=== PATIENT | female | born 1955 ===

== ENCOUNTER 2019-10-15 14:25 | Emergency (ER) | payer MEDICARE, MEDICAID ==
[2019-10-15] MEDS ORDERED: ASPIRIN 81 MG CHEWABLE TABLET PO ONE (14:27)
[2019-10-15 14:40] LABS: ABSOLUTE NEUTROPHIL COUNT 3.15; BASO % 0.9 % (0-6); EOS % 3.5 % (0-6); GRAN % 54.5 % (47-80); HEMATOCRIT 40.8 % (35.0-47.0); HEMOGLOBIN 13.1 gm/dl (11.6-16.0); LYMPH % 31.8 % (16-45); MEAN CELL VOLUME 91.3 fl (81-97); MEAN CORPUSCULAR HEMOGLOBIN 29.3 pg (27-33); MEAN CORPUSCULAR HGB CONC 32.1 g/dl (32-36); MONO % 9.3 % (0-9); PLATELET COUNT 282 K/uL (130-400); RED BLOOD COUNT 4.47 M/uL (3.80-5.40); RED CELL DISTRIBUTION WIDTH 12.9 % (11.5-14.5); WHITE BLOOD COUNT W/O DIFF 5.8 K/uL (4.2-12.2)
--- NOTE | 2019-10-15 14:44 | Emergency Department Record ---
History of Present Illness - General Chief Complaint: Chest Pain Stated Complaint: CHEST PAIN Time Seen by Provider: 10/15/19 14:27 Source: Patient, RN notes reviewed Mode of Arrival: Ambulatory - History of Present Illness Initial Comments: patient has right sided chest pain and started one hour before arrival and upon arrival to ED the chest pain went away. No dyspnea no cough no abdominal pain, Patient has not been taking any of her meds for 3 weeks and her primary Dr is Dr Carolyn Vizcaino. Patient said her lips swelled and she thought it was prozaic and stopped all her meds PMH copd, asthma - Related Data Allergies Allergy/AdvReac Type Severity Reaction Status Date / Time lisinopril Allergy Severe Swelling Verified 10/15/19 14:48 Review of Systems Reviewed: No additional complaints except as noted below Constitutional: Reports: As per HPI. Denies: Chills, Fever, Malaise, Night sweats, Weakness, Weight change Eyes: Reports: As per HPI. Denies: Eye discharge, Eye pain, Photophobia, Vision change ENT: Reports: As per HPI. Denies: Congestion, Dental pain, Ear pain, Epistaxis, Hearing loss, Throat pain Respiratory: Reports: As per HPI. Denies: Cough, Dyspnea, Hemoptysis, Stridor, Wheezes Cardiovascular: Reports: As per HPI, Chest pain. Denies: Arrhythmia, Dyspnea on exertion, Edema, Murmurs, Orthopnea, Palpitations, Paroxysmal nocturnal dyspnea, Rheumatic Fever, Syncope Endocrine: Reports: As per HPI. Denies: Fatigue, Heat or cold intolerance, Polydipsia, Polyuria Gastrointestinal: Reports: As per HPI. Denies: Abdominal pain, Constipation, Diarrhea, Hematemesis, Hematochezia, Melena, Nausea, Vomiting Genitourinary: Reports: As per HPI. Denies: Abnormal menses, Discharge, Dyspareunia, Dysuria, Frequency, Hematuria, Incontinence, Retention, Urgency Musculoskeletal: Reports: As per HPI. Denies: Arthralgia, Back pain, Gout, Joint swelling, Myalgia, Neck pain Skin: Reports: As per HPI. Denies: Bruising, Change in color, Change in hair/nails, Lesions, Pruritus, Rash Neurological: Reports: As per HPI. Denies: Abnormal gait, Confusion, Headache, Numbness, Paresthesias, Seizure, Tingling, Tremors, Vertigo, Weakness Psychiatric: Reports: As per HPI. Denies: Anxiety, Auditory hallucinations, Depression, Homicidal thoughts, Suicidal thoughts, Visual hallucinations Hematological/Lymphatic: Reports: As per HPI. Denies: Anemia, Blood Clots, Easy bleeding, Easy bruising, Swollen glands Physical Exam - General General Appearance: Alert, Oriented x3, Cooperative, No acute distress - Head Head exam: Normal inspection - Eye Eye exam: Normal appearance, PERRL Pupils: Normal accommodation - ENT ENT exam: Normal exam, Mucous membranes moist, Normal external ear exam, Normal orophraynx, TM's normal bilaterally Ear exam: Normal external inspection. negative: External canal tenderness Nasal Exam: Normal inspection. negative: Discharge, Sinus tenderness Mouth exam: Normal external inspection, Tongue normal Teeth exam: Normal inspection. negative: Dental caries Throat exam: Normal inspection. negative: Tonsillar erythema, Tonsillar exudate - Neck Neck exam: Normal inspection, Full ROM. negative: Tenderness - Respiratory Respiratory exam: Normal lung sounds bilaterally. negative: Respiratory distress - Cardiovascular Cardiovascular Exam: Regular rate, Normal rhythm, Normal heart sounds - GI/Abdominal GI/Abdominal exam: Soft, Normal bowel sounds. negative: Tenderness - Rectal Rectal exam: Deferred - exam: Deferred - Extremities Extremities exam: Normal inspection, Full ROM, Normal capillary refill. negati ve: Tenderness - Back Back exam: Reports: Normal inspection, Full ROM. Denies: Muscle spasm, Rash noted, Tenderness - Neurological Neurological exam: Alert, Normal gait, Oriented X3, Reflexes normal - Psychiatric Psychiatric exam: Normal affect, Normal mood - Skin Skin exam: Dry, Intact, Normal color, Warm Course - Reevaluation(s) Reevaluation #1: No chest pain since arrival in the ED 10/15/19 17:02 10/15/19 17:02 Medical Decision Making - Data Complexity MDM Data: Labs Ordered and/or Reviewed (T negative), X-Ray Ordered and/or Reviewed (chest xray nodule present indeterminate will need follow up), EKG Ordered and/or Reviewed (NSR , no acute changes) - Lab Data Result diagrams: 10/15/19 14:30 10/15/19 14:30 Lab Results 10/15/19 Range/Units 14:30 WBC 5.8 (4.2-12.2) K/uL RBC 4.47 (3.80-5.40) M/uL Hgb 13.1 (11.6-16.0) gm/dl Hct 40.8 (35.0-47.0) % MCV 91.3 (81-97) fl MCH 29.3 (27-33) pg MCHC 32.1 (32-36) g/dl RDW 12.9 (11.5-14.5) % Plt Count 282 (130-400) K/uL MPV 9.0 (7.4-10.4) fl Gran % 54.5 (47-80) % Lymphocytes % 31.8 (16-45) % Monocytes % 9.3 H (0-9) % Eosinophils % 3.5 (0-6) % Basophils % 0.9 (0-6) % Absolute Neutrophils 3.15 Disposition Clinical Impression: Chest wall pain, Lung nodule Disposition: Home, Self-Care Condition: (1) Good Instructions: Chest Wall Pain (ED) Additional Instructions: follow up with Dr Ruma Vizcaino in 2 to 5 days may need more testing use ibuprofin 800 mg three times a day and she already has that. take tums 2-3 pills after meals and bedtime Forms: Patient Portal Access Time of Disposition: 17:19 Quality - Quality Measures Quality Measures: N/A - Blood Pressure Screening Does Patient Have Any of the Following: No, Active Dx of HTN Blood Pressure Classification: Hypertensive Reading Systolic Measurement: 189 Diastolic Measurement: 103 Screening for High Blood Pressure: Patient Exclusion, Hx of HTN [[id number]]
[2019-10-15 14:50] LABS: BLOOD UREA NITROGEN 17 mg/dL (8-23)
[2019-10-15 14:51] LABS: CREATININE 0.5 mg/dL (0.5-0.9); EST GLOMERULAR FILTRATION RATE > 60 mL/min
[2019-10-15 14:53] LABS: GLUCOSE,RANDOM 99 mg/dL (74-109)
--- NOTE | 2019-10-15 15:57 | RADIOLOGY REPORT ---
EXAMINATION: Two View Chest Radiographs EXAM DATE: 10/15/2019 3:38 PM TECHNIQUE: Frontal and lateral views INDICATION: chest pain COMPARISON: Report from May 15, 2019 for which images are unavailable ENCOUNTER: Not applicable FINDINGS: The heart, mediastinum, and pulmonary vasculature are normal. 12 mm nodular density seen superior to the aortic arch on lateral image only for which the etiology is indeterminate. No lung consolidation or pleural effusions are present. Lung tolentino are hyperexpanded IMPRESSION: 12 mm nodular density seen on lateral image only for which the etiology is indeterminate. This could be further characterize with CT of the chest. Pulmonary hyperexpansion. Negative for focal infiltrate Dictated by: Janice Alexander MD on 10/15/2019 3:52 PM. .
== END 2019-10-15 17:29 | disposition home or self-care (01) ==
LOC: ER 14:25
DX: R07.89 Other chest pain (principal); R91.1 Solitary pulmonary nodule; I10 Essential (primary) hypertension; J44.9 Chronic obstructive pulmonary disease, unspecified
CPT/HCPCS: 71046; 80048; 84484; 85025; 85730; 93005; 93010; 99284